=== PATIENT | female | born 1960 | race Caucasian/White ===

== ENCOUNTER 2018-12-20 17:22 | Emergency (ER) | payer SELFPAY ==
[~2018-12-20] VITALS: Ht 165.1 cm; Wt 65.8 kg
[2018-12-20 19:31] VITALS: BP 127/84
== END 2018-12-20 19:31 | disposition home or self-care (01) ==
LOC: ED 17:22
DX: S92.352A Displaced fracture of fifth metatarsal bone, left foot, initial encounter for closed fracture (principal); R10.30 Lower abdominal pain, unspecified; X58.XXXA Exposure to other specified factors, initial encounter; Y93.89 Activity, other specified; Y92.89 Other specified places as the place of occurrence of the external cause; Y99.8 Other external cause status
CPT/HCPCS: Q0092